=== PATIENT | female | born 1955 | race Caucasian/White ===

== ENCOUNTER 2017-03-31 22:20 | Emergency (ER) | payer OTHER ==
[~2017-03-31] VITALS: Ht 157.5 cm; Wt 72.6 kg
[2017-03-31 22:34] VITALS: BP_SYST 159
--- NOTE | 2017-03-31 23:27 | NUR ---
Patient to ER bed 7 to gown for evaluation. Side rails up. Report given to Hollie BARLOW.
--- NOTE | 2017-03-31 23:30 | NUR ---
Patient AAO x4, sitting in bed, brought in via BLS for pain from shingles and right abd pain 7/10 with nausea and vomiting x 1 day. Patient was unable to get medication for shingles stating, "all the pharmacies were closed." No acute distress noted. Will continue to monitor.
--- NOTE | 2017-03-31 23:53 | NUR ---
ER at bedside examining patient.
[2017-04-01] MEDS: ONDANSETRON 4 MG ODT TAB PO ONE (00:11)
[2017-04-01] MEDS: KETOROLAC TROMETHAMINE 60 MG/2 ML VIAL IM ONE (00:12)
--- NOTE | 2017-04-01 00:41 | NUR ---
Patient states pain from shingles on right side is improved but abd in still present at 6/. informed.
--- NOTE | 2017-04-01 00:55 | NUR ---
x-ray at bedside.
[2017-04-01 01:06] VITALS: BP_SYST 135
[2017-04-01] MEDS: OXYCODONE/ACETAMINOPHEN 5-325 TABLET PO ONE (01:26)
--- NOTE | 2017-04-01 01:30 | NUR ---
Patient given written and verbal discharge instructions and verbalizes understanding. ER MD discussed with patient the results and treatment provided. Patient in stable condition. ID arm band removed. Rx of biscodyl and zofran given. Patient educated on pain management and to follow up with PMD. Pain Scale 2/10 tolerable by patient. Opportunity for questions provided and answered.
== END 2017-04-01 01:06 | disposition home or self-care (01) ==
LOC: SED 22:20
DX: K59.00 Constipation, unspecified (principal); B02.9 Zoster without complications; R11.10 Vomiting, unspecified
CPT/HCPCS: 74000; 82962; 96372; 99283; J1885; Q0162